=== PATIENT | female | born 1990 | race African-American/Black ===

== ENCOUNTER 2017-03-14 00:23 | Emergency (ER) | payer SELFPAY ==
[2017-03-14] MEDS ORDERED: METOCLOPRAMIDE HCL 5 MG/ML VIAL IV ONE (00:35)
[2017-03-14] MEDS ORDERED: NORMAL SALINE 1,000 ML IV PRN (00:35)
[2017-03-14] MEDS ORDERED: diphenhydrAMINE HCL 50 MG/ML VIAL IV ONE (00:36)
--- NOTE | 2017-03-14 00:38 | ERNOTE ---
Medical Problem HPI - Narrative Date of Service: 03/14/17 - General Time Seen by Provider: 03/14/17 00:31 Source: patient Exam Limitations: no limitations - Immun/Allergies/Home Medications Allergies/Adverse Reactions: Allergies No Known Allergies Allergy (Unverified 03/14/17 00:56) Home Medications: HOME MEDICATIONS Cephalexin Monohydrate [Keflex] 500 mg PO Q8H #12 capsule 03/14/17 [Last Taken Unknown] Lpr350/Iron Fumarate/FA/Dss [ 19 Tablet] 1 each PO DAILY 03/14/17 [Last Taken Unknown] - History of Present History Narrative: 26-year-old female who believes that she is 8 weeks , [id number] and has been vomiting for the last 3 weeks. She believes that the nausea and vomiting increased today. Denies any fevers, chills, diarrhea or back pain. She has been experiencing mild pelvic cramping. No vaginal bleeding. She has not experienced similar symptoms with a previous 6 years ago. Patient has lost approximately 20 pounds since the last time she weighed herself. Timing: intermittent Severity: severe Modifying Factors - (Improves): Present: other - nothing Modifying Factors - (Worsens): Present: other - nothing Review of Systems - Review of Systems Constitutional: Present: no symptoms reported EYE: Present: no symptoms reported ENT: Present: no symptoms reported Respiratory: Present: no symptoms reported Cardiology: Present: no symptoms reported Gastrointestinal/Abdominal: Present: See HPI Genitourinary: Present: no symptoms reported Musculoskeletal: Present: no symptoms reported Skin: Present: no symptoms reported Neurological: Present: other - feeling woozy with standing Endocrine: Present: no symptoms reported Physical Exam - Physical Exam General Appearance: Present: no apparent distress Head Exam: Present: normal inspection Eye Exam: Normal inspection: bilateral Ears, Nose, Throat: Present: normal ENT inspection Neck: Present: normal inspection Respiratory: Present: no respiratory distress Cardiovascular/Chest: Present: regular rate, rhythm Gastrointestinal/Abdominal: Present: nontender, nondistended Back Exam: Present: normal inspection Extremity Exam: Present: normal inspection Neurological Exam: Present: alert, oriented Skin Exam: Present: normal color ED Progress - Results and Orders Patient's Lab Results:: I have reviewed the patient's lab results. - Vital Signs Patient's Vital Signs:: I have reviewed the patient's vital signs. - Progress/Reassessment Progress:: Improved Progress Note-Subjective: 03/14/17 02:21 No longer nauseous and is taking PO fluids; eating crackers. Departure - Departure Clinical Impression: Hyperemesis gravidarum, UTI (urinary tract infection) Condition: Good Instructions: Eating Plan for Hyperemesis Gravidarum Print Language: [place] Additional Instructions: Try frequent sipping of small quantities of water or Gatorade. Prescriptions: Cephalexin Monohydrate [Keflex] 500 mg PO Q8H #12 capsule
[2017-03-14 00:55] LABS: Urine Bilirubin 1 mg/dl (NEGATIVE); Urine Ketone Large mg/dL (NEGATIVE); Urine Nitrite Negative (NEGATIVE); Urine Protein 30 mg/dL (NEGATIVE); Urine Specific Gravity >=1.030 SP.GR. (1.005-1.010); Urine Urobilinogen Normal (NORMAL)
[2017-03-14] MEDS ORDERED: METOCLOPRAMIDE HCL 5 MG/ML VIAL ONE (00:58)
[2017-03-14] MEDS ORDERED: diphenhydrAMINE HCL 50 MG/ML VIAL ONE (00:58)
[2017-03-14 01:01] LABS: Anion Gap 16.8 mmol/L (6.8-13.8); BUN/Creatinine Ratio 17.7 (9.0-21.6); Calcium * 9.3 mg/dL (7.9-10.9); Carbon Dioxide 24.1 mmol/L (24-32.6); Estimated Creat Clear 103.1; Potassium 3.9 mmol/L (3.4-4.6)
[2017-03-14 01:06] LABS: Urine Blood 5 /ul (NEGATIVE)
[2017-03-14 01:07] LABS: Urine Appearance Cloudy; Urine Bacteria 2+; Urine Color Dark Yellow; Urine RBC 0-5 /hpf (0-5); Urine WBC 25-50 /hpf (0-5)
[2017-03-14] MEDS ORDERED: NORMAL SALINE 1,000 ML IV ONE (01:21)
[2017-03-14] MEDS ORDERED: CEPHALEXIN MONOHYDRATE 250 MG CAPSULE PO ONE (01:28)
[2017-03-14] MEDS ORDERED: CEPHALEXIN MONOHYDRATE 250 MG CAPSULE ONE (02:05)
[2017-03-14 03:27] VITALS: BP 110/70
== END 2017-03-14 03:25 | disposition home or self-care (01) ==
LOC: ER 00:23
DX: O21.0 Mild hyperemesis gravidarum (principal); O23.41 Unspecified infection of urinary tract in pregnancy, first trimester; Z3A.00 Weeks of gestation of pregnancy not specified

== ENCOUNTER 2017-03-26 22:02 | Emergency (ER) | payer SELFPAY ==
[2017-03-26] MEDS ORDERED: ONDANSETRON HCL/PF 2 MG/ML VIAL IV ONE (22:22)
[2017-03-26] MEDS ORDERED: NORMAL SALINE 1,000 ML IV ONE ×2 (22:22→23:48)
--- NOTE | 2017-03-26 22:25 | ERNOTE ---
Abdominal HPI - Narrative Date of Service: 03/26/17 - General Chief Complaint: Abdominal Pain Time Seen by Provider: 03/26/17 22:06 - Immun/Allergies/Home Medications Immunizatons: IMMUNIZATION HX Immunizations Up to Date Yes History of Influenza Vaccine No Hx Pneumococcal Vaccination No Allergies/Adverse Reactions: Allergies No Known Allergies Allergy (Unverified 03/14/17 00:56) Home Medications: HOME MEDICATIONS Rid655/Iron Fumarate/FA/Dss [ 19 Tablet] 1 each PO DAILY 03/14/17 [Last Taken Unknown] Nitrofurantoin Macrocrystal [Macrodantin] 100 mg PO BID #20 capsule 03/27/17 [ Last Taken Unknown] Ondansetron HCl [Zofran] 4 mg PO Q4H PRN #40 tablet 03/27/17 [Last Taken Unknown ] - History of Present Illness Narrative: This is a 26-year-old female who states that her last menstrual period was February 07 or around that time. She says she has an appointment with an [facility] on the , however she has had persistent nausea and vomiting along with gradually increasing abdominal pain since she found out she was a month ago. The patient says that she also has some mild chest discomfort which seems to get worse with the vomiting. She says "I feel like I'm dying". She denies any shortness of breath. She denies any swelling of the legs. She was treated for urinary tract infection to call the antibiotics and says that she does not know if it is resolved. It was diagnosed here in the emergency department approximately 2 weeks ago. The patient denies alcohol or illicit drug use. She says she is marijuana around a month ago. The patient denies any other somatic complaints Review of Systems - Review of Systems Constitutional: Present: weakness, fatigue, malaise EYE: Present: no symptoms reported ENT: Present: no symptoms reported Respiratory: Present: no symptoms reported Cardiology: Present: See HPI, chest pain Gastrointestinal/Abdominal: Present: See HPI, nausea, vomiting, abdominal pain, eating less, drinking less. Absent: diarrhea, constipation Genitourinary: Present: no symptoms reported Musculoskeletal: Present: no symptoms reported Skin: Present: no symptoms reported Neurological: Present: no symptoms reported Endocrine: Present: no symptoms reported Hematologic/Lymphatic: Present: no symptoms reported Psych: Present: no symptoms reported All Other Systems: All systems neg except as marked - Patient's Past Medical History Patient History - Medical: No pertinent hx Patient History - Cardiac/Respiratory: No pertinent hx Patient History - Cancer: No Hx of Cancer Patient History - Surgical Procedures: No surgical history Patient History - Other: None LMP (females 10-50): 2 months - Social History Living Situations: home Psych History: No pertinent hx Smoking Status: Former smoker Have you smoked in the past 12 months: Yes Do you dip or chew tobacco: No Patient requests Smoking Cessation Consult: No Initiate information on Smoking Cessation: No Alcohol Use: none Drug Use: none - Immunizations Immunizations Up to Date: Yes Hx Pneumococcal Vaccination: No History of Influenza Vaccine: No Physical Exam - Physical Exam General Appearance: Present: wd/wn, alert, other - ill appearing but in no distress Head Exam: Present: normal inspection, no evidence of injury Eye Exam: Normal inspection: bilateral, PERRL: bilateral, EOMI: bilateral Ears, Nose, Throat: Present: normal ENT inspection, normal pharynx Neck: Present: normal inspection, nontender Respiratory: Present: no respiratory distress, normal breath sounds, no accessory muscle use, chest nontender, lungs clear Cardiovascular/Chest: Present: regular rate, rhythm, no murmur, normal peripheral pulses, other - patient is not tachycardic Gastrointestinal/Abdominal: Present: normal bowel sounds, nontender, nondistended, soft, no organomegaly Back Exam: Present: normal inspection, no CVA tenderness Extremity Exam: Present: normal inspection, normal range of motion, no edema Neurological Exam: Present: alert, oriented Skin Exam: Present: normal color, warm/dry Lymphatic Exam: Present: no adenopathy ED Progress - Results and Orders Patient's Lab Results:: I have reviewed the patient's lab results. - Vital Signs Patient's Vital Signs:: I have reviewed the patient's vital signs. Vital Signs: Vital Signs 03/26/17 22:06 Temperature 38.0 C H Pulse Rate 85 Respiratory 22 H Rate Blood Pressure 137/58 O2 Sat by Pulse 98 Oximetry - Progress/Reassessment Chief Complaint: Abdominal Pain Progress:: Improved Progress Note-Subjective: 03/27/17 00:44 Patient has been able to keep down fluids as well as potassium. Said she feels 100% better. Still a little bit nauseated after the potassium. He is going to get another liter of fluids. Will go home with antibiotics. Departure - Departure Clinical Impression: Urinary tract infection affecting Disposition: Home self-care Condition: Stable Instructions: and Urinary Tract Infection, Eating Plan for Hyperemesis Gravidarum Additional Instructions: As we discussed, he will need to take the Zofran to help with nausea and vomiting. I sincerely hope that he will get better after the bladder infection has been completely treated. He may take one, 2, or even 3 at a time if needed. Do not take more than 3 tablets within every 4 hours. Use the information I provided to help minimize nausea when eating and drinking. Take the prescribed antibiotics and Zofran for nausea [facility] family doctor and set up a follow-up appointment Keep the [facility] appointment you have on the . Certainly if you develop new worrisome symptoms she should return to the ER. Prescriptions: Nitrofurantoin Macrocrystal [Macrodantin] 100 mg PO BID #20 capsule Ondansetron HCl [Zofran] 4 mg PO Q4H PRN #40 tablet PRN Reason: Nausea
[2017-03-26] MEDS ORDERED: ONDANSETRON HCL/PF 2 MG/ML VIAL ONE (22:26)
[2017-03-26 22:35] LABS: Hemoglobin 12.9 gm/dL (12.5-16.0); Mean Cell Volume 84.5 fl (78-100); Mean Corpuscular Hemoglobin 29.5 pg (27-31); Mean Corpuscular Hgb Conc 34.9 g/dl (32-36); Mean Platelet Volume 13.1 fl (6.0-9.5); Neutrophil % 78.5 % (42-75.0); Platelet Count 115 K/mm3 (150-450); Red Blood Count 4.38 M/mm3 (4.2-5.4); Red Cell Distribution Width 11.8 % (11.5-14.0); White Blood Count 7.7 K/mm3 (4.0-10.5)
[2017-03-26 22:57] LABS: Albumin * 3.2 gm/dl (3.4-5.0); Anion Gap 16.9 mmol/L (6.8-13.8); BUN/Creatinine Ratio 21.7 (9.0-21.6); Bilirubin, Total 0.6 mg/dL (0.0-1.1); Ca. Corrected For Albumin 9.4 mg/dL (8.4-10.2); Calcium * 9.1 mg/dL (7.9-10.9); Carbon Dioxide 21.2 mmol/L (24-32.6); Potassium 3.1 mmol/L (3.4-4.6); Total Protein 7.5 gm/dL (6.2-8.2)
[2017-03-26] MEDS ORDERED: POTASSIUM CHLORIDE 20 MEQ TABLET.SA PO ONE (23:15)
[2017-03-26] MEDS ORDERED: POTASSIUM CHLORIDE 20 MEQ TABLET.SA ONE (23:38)
[2017-03-26 23:46] LABS: Urine Appearance Slightly Cloudy; Urine Bacteria 2+; Urine Bilirubin 1 mg/dl (NEGATIVE); Urine Blood Negative /ul (NEGATIVE); Urine Color Amber; Urine Ketone Large mg/dL (NEGATIVE); Urine Nitrite Negative (NEGATIVE); Urine Protein 100 mg/dL (NEGATIVE); Urine RBC None Seen /hpf (0-5); Urine Specific Gravity 1.025 SP.GR. (1.005-1.010); Urine Urobilinogen Normal (NORMAL); Urine pH 6.5 pH (5.0-7.0)
[2017-03-26 23:51] LABS: Cocaine Ur Negative (NEGATIVE); Urine Barbiturate Negative (NEGATIVE); Urine Benzodiazepines Negative (NEGATIVE); Urine Opiates Negative (NEGATIVE); Urine PCP Negative (NEGATIVE); Urine THC Positive (NEGATIVE)
[2017-03-27] MEDS ORDERED: AMOXICILLIN TRIHYDRATE 250 MG CAPSULE PO ONE (00:49)
[2017-03-27] MEDS ORDERED: NORMAL SALINE 1,000 ML IV ONE (00:49)
[2017-03-27] MEDS ORDERED: AMOXICILLIN TRIHYDRATE 250 MG CAPSULE ONE (00:57)
[2017-03-27] MEDS ORDERED: ONDANSETRON 4 MG TAB.RAPDIS PO ONE (02:15)
[2017-03-27] MEDS ORDERED: ONDANSETRON 4 MG TAB.RAPDIS ONE (02:18)
[2017-03-27 02:30] VITALS: BP 97/53
== END 2017-03-27 02:10 | disposition home or self-care (01) ==
LOC: ER 22:02
DX: O23.40 Unspecified infection of urinary tract in pregnancy, unspecified trimester (principal); Z3A.00 Weeks of gestation of pregnancy not specified; Z87.891 Personal history of nicotine dependence
CPT/HCPCS: 36415; 80053; 80307; 81001; 83690; 84702; 85025; 87086; 96374; 99284; J2405